=== PATIENT | female | born 1965 | race Caucasian/White ===

== ENCOUNTER → 2016-05-23 | Day surgery (SDC) | payer BC ==
[~2016-05-23] MED LIST: CIPRO PO; NO MEDICATIONS; VOLTAREN75 MG PO
--- NOTE | ~2016-05-23 | OR ---
Unit #: [id number] #: [id number] Patient: LAKISHA NINO [id number] [address] [address] [id number] MR#: [id number] NAME: LAKISHA NINO. ROOM: Date of Procedure: 05/23/2016 Admission Date: 05/23/2016 Surgeon: Renan Long M.D. : 1965 Attending Physician: Renan Long M.D. Referring Physician: Renan Long M.D. OPERATIVE REPORT PREOPERATIVE DIAGNOSES 1. Reflux. 2. Left lower quadrant pain. 3. First-degree relative with colon cancer. POSTOPERATIVE DIAGNOSES 1. Reflux. 2. Left lower quadrant pain. 3. First-degree relative with colon cancer. PROCEDURES PERFORMED 1. Esophagogastroduodenoscopy. 2. Biopsy of antrum for Helicobacter pylori testing. 3. Colonoscopy to terminal ileum. 4. Polypectomy at 65 cm with electrocautery snare. ANESTHESIA Monitored anesthesia care. FINDINGS The patient was found on upper endoscopy to have mild gastritis. On colonoscopy, the patient was found to have a 5 mm polyp at 65 cm. It was excised completely with electrocautery snare with good hemostasis and sent to pathology. Some scattered shallow sigmoid diverticula were present. SPECIMENS Sent to pathology. COMPLICATIONS None apparent. CONDITION The patient tolerated the procedure well. INDICATIONS FOR PROCEDURE The patient is a 51-year-old white female, who presents at this time with complaint of reflux symptoms as well as intermittent left lower quadrant pain, having never had a colonoscopy despite having a first-degree relative, who being her mother with colon cancer. DESCRIPTION OF PROCEDURE After obtaining informed consent, the patient was brought to the endoscopy Unit #: [id number] #: [id number] Patient: LAKISHA NINO suite and after adequate monitored anesthesia care, had the endoscope placed into the upper esophagus under direct vision. It was advanced to the second portion of the duodenum without difficulty with the lumen always in view. The duodenum was within normal limits as was the duodenal bulb. The pylorus opened normally. A biopsy was obtained from the antrum for Helicobacter pylori testing. On retroflexion back to the GE junction, there was no abnormalities found in the proximal third, middle third, or incisura. On pulling back above the GE junction, there was no stenosis, stricture, or neoplasm seen. The remaining portion of the esophagus was within normal limits. Laryngeal structures were grossly normal as viewed from above. At this point in time, the colonoscope was placed through the anus and slowly advanced to the level of the cecum without difficulty with the lumen always in view. We were able to pass into the terminal ileum. The terminal ileum was normal as was the ileocecal valve and cecum. The ascending colon was normal as was the hepatic flexure, transverse colon, splenic flexure, and descending colon. In the sigmoid colon, there were some scattered shallow sigmoid diverticula present. At 65 cm in the distal descending colon, small polyp was found. It was excised completely with electrocautery snare with good hemostasis, retrieved with a mucus trap, and sent to pathology. The remaining portion of the sigmoid colon, rectosigmoid, and rectum were normal other than scattered diverticula. On retroflexing in the rectum to the anorectal junction, there was no significant abnormality seen. The scope was removed without difficulty. The patient tolerated the procedure well and went from the endoscopy suite to the recovery area in stable condition. RECOMMENDATIONS Gastroesophageal reflux sheet given. Diverticular sheet given. High-fiber diet, lots of liquids, tucks or wipes p.r.n. Call Monday for pathology. [id number] Prilosec or Pepcid as needed or daily for reflux symptoms. Dictated by... Tiffany Jimenez/yohana TD: 05/23/2016 21:54 JOB #: [id number] CC: [facility] OPERATIVE REPORT X Renan Long MD X PROCEDURE OPERATIVE NOTE
== END | disposition home or self-care (01) ==
LOC: COPS 09:30
DX: Z12.11 Encounter for screening for malignant neoplasm of colon (principal); D12.6 Benign neoplasm of colon, unspecified; K21.9 Gastro-esophageal reflux disease without esophagitis; K29.70 Gastritis, unspecified, without bleeding; K57.30 Diverticulosis of large intestine without perforation or abscess without bleeding; F17.210 Nicotine dependence, cigarettes, uncomplicated; Z87.442 Personal history of urinary calculi; Z80.0 Family history of malignant neoplasm of digestive organs; Z88.0 Allergy status to penicillin; Z98.51 Tubal ligation status; Z98.890 Other specified postprocedural states
CPT/HCPCS: 87077; 88305; J2250